=== PATIENT | female | born 1950 | race Caucasian/White ===

== ENCOUNTER 2022-01-02 13:00 | Outpatient (RCR) | payer MEDICARE, OTHER | END 2022-01-03 | LOC: EDBD → PT 13:00 | PROVIDERS: ATTEND Family Medicine | DX: M51.17 Intervertebral disc disorders with radiculopathy, lumbosacral region (principal); M62.81 Muscle weakness (generalized); R26.2 Difficulty in walking, not elsewhere classified; R29.3 Abnormal posture; Z91.81 History of falling ==

== ENCOUNTER 2022-02-01 12:56 | Outpatient (RCR) | payer MEDICARE, OTHER | END 2022-02-02 | LOC: PT 12:56 | PROVIDERS: ATTEND Family Medicine | DX: M51.17 Intervertebral disc disorders with radiculopathy, lumbosacral region (principal) | CPT/HCPCS: 97139 ==